=== PATIENT | female | born 2000 | race African-American/Black ===

== ENCOUNTER 2021-02-01 01:14 | Emergency (ER) | payer OTHER, SELFPAY ==
--- NOTE | ~2021-02-01 | XR_ITS ---
EXAMINATION: LEFT HAND AND WRIST CLINICAL INFORMATION: Pain. COMPARISON: None TECHNIQUE: 3 views FINDINGS: There is no fracture. No dislocation. Joint spaces are normal. No soft tissue abnormality. XR/XR hand wrist LT IMPRESSION: Hand and wrist
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
[2021-02-01 01:20] VITALS: BP 118/73; PULSE 80; RESP 16; TEMP 36.8; O2SAT 98; BMI 25.4
--- NOTE | 2021-02-01 04:29 | PC.NURSE ---
PT WALKED OUT OF ROOM, REPORTS THAT SHE NEEDED TO LEAVE. PT WALKED THROUGH TRIAGE AND OUT TO PARKING LOT. FRIEND WAITING FOR HER.
== END 2021-02-01 04:57 | disposition left against medical advice (07) ==
PROVIDERS: Emergency Provider Emergency Medicine
DX: S50.12XA Contusion of left forearm, initial encounter (principal); S60.212A Contusion of left wrist, initial encounter; S40.012A Contusion of left shoulder, initial encounter; W07.XXXA Fall from chair, initial encounter; Y93.89 Activity, other specified; Y92.252 Music hall as the place of occurrence of the external cause; Y99.8 Other external cause status
CPT/HCPCS: 73070; 73110; 73130; 99283; 99284

== ENCOUNTER 2021-02-01 09:31 | Emergency (ER) | payer OTHER, SELFPAY ==
[2021-02-01 09:36] VITALS: BP 128/83; PULSE 107; RESP 16; TEMP 36.8; O2SAT 98; BMI 25.4
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
[2021-02-01] MEDS: oxyCODONE HCl Immed Release 5 MG TABLET PO (10:42)
[2021-02-01] MEDS: Ibuprofen 800 MG TABLET PO (10:43)
== END 2021-02-01 11:01 | disposition home or self-care (01) ==
PROVIDERS: Emergency Provider Student in an Organized Health Care Education/Training Program
DX: S63.92XA Sprain of unspecified part of left wrist and hand, initial encounter (principal); S63.502A Unspecified sprain of left wrist, initial encounter; S53.402A Unspecified sprain of left elbow, initial encounter; W07.XXXA Fall from chair, initial encounter; Y93.89 Activity, other specified; Y92.252 Music hall as the place of occurrence of the external cause; Y99.9 Unspecified external cause status
CPT/HCPCS: 99284

== ENCOUNTER → 2021-02-14 14:21 | Outpatient (BNVA) | payer OTHER, SELFPAY | PROVIDERS: Visit Provider Physician Assistant | DX: S63.502A Unspecified sprain of left wrist, initial encounter (principal) | CPT/HCPCS: 99202 ==

== ENCOUNTER 2021-06-12 19:52 | Emergency (ER) | payer OTHER, SELFPAY ==
[2021-06-12 20:45] VITALS: BP 116/50; PULSE 85; RESP 20; TEMP 36.9; O2SAT 99; BMI 26.4
== END 2021-06-12 22:49 | disposition left against medical advice (07) ==
PROVIDERS: Emergency Provider Emergency Medicine
DX: R05.9 Cough, unspecified (principal)
CPT/HCPCS: 99281; 99282

== ENCOUNTER 2021-06-13 10:26 | Outpatient (REF) | payer OTHER, SELFPAY ==
--- NOTE | ~2021-06-13 | XR_ITS ---
EXAMINATION: XR CHEST CLINICAL INFORMATION: Chronic cough COMPARISON: None TECHNIQUE: 2 views of the chest were obtained. FINDINGS: No significant abnormality is noted involving the heart, lungs, mediastinum, bony thorax or soft tissues. XR/XR chest 2V IMPRESSION: Unremarkable examination.
== END 2021-06-13 10:27 | disposition home or self-care (01) ==
LOC: HO.HMGCX 10:26
PROVIDERS: Visit Provider Nurse Practitioner Family
DX: R05.3 Chronic cough (principal)
CPT/HCPCS: 71046

== ENCOUNTER 2021-12-02 16:11 | Emergency (ER) | payer OTHER, SELFPAY ==
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
[2021-12-02 18:26] VITALS: BP 133/84; PULSE 90; RESP 16; TEMP 37.4; O2SAT 100; BMI 24.5
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
[2021-12-02] MEDS: Amoxicillin/Potassium Clav 875 MG TABLET PO (19:24)
== END 2021-12-02 22:34 | disposition home or self-care (01) ==
PROVIDERS: Emergency Provider Emergency Medicine
DX: S61.411A Laceration without foreign body of right hand, initial encounter (principal); M79.642 Pain in left hand; M79.641 Pain in right hand; Y28.0XXA Contact with sharp glass, undetermined intent, initial encounter; Y93.9 Activity, unspecified; Y92.9 Unspecified place or not applicable; Y99.9 Unspecified external cause status; Z79.899 Other long term (current) drug therapy
CPT/HCPCS: 73110; 73120; 73130; 99282; 99283

== ENCOUNTER 2022-07-26 20:40 | Emergency (ER) | payer OTHER, SELFPAY ==
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
[2022-07-26 20:42] VITALS: BP 142/85; PULSE 104; RESP 16; TEMP 36.3; O2SAT 100; BMI 27.3
--- NOTE | 2022-07-26 21:06 | MHC.EDTECH ---
pt lab drawn ,covid and flu swab collected ,urine sample all sent to lab .
[2022-07-26 21:16] LABS: MANUAL DIFF FLAG NO
[2022-07-26 21:17] LABS: Basophils Percent Auto 0.2 % (0-2); Eosinophils Absolute Auto 0.1 X10*3/uL (0.0-0.4); Eosinophils Percent Auto 0.8 % (0-4); Hematocrit 36.3 % (37.0-47.0); Hemoglobin 12.3 g/dl (12.0-16.0); Imm Gran Abs Auto 0.04 X10*3/uL (0.00-0.03); Imm Gran Pct Auto 0.3 % (0.0-0.4); Lymphocytes Absolute Auto 1.5 X10*3/uL (1.2-4.9); Lymphocytes Percent Auto 11.9 % (20-40); Mean Corpuscular HGB Conc 33.9 g/dl (31.0-35.0); Mean Corpuscular Hemoglobin 29.1 pg (27.0-33.0); Mean Platelet Volume 9.1 fL (9.4-12.3); Monocytes Absolute Auto 0.9 X10*3/uL (0.1-1.2); Monocytes Percent Auto 6.9 % (2-11); Neutrophils Absolute Auto 9.9 x10*3/uL (2.0-8.3); Neutrophils Percent Auto 79.9 % (45-73); Platelet Count 426 X10*3/uL (160-400); Red Blood Count 4.22 X10*6/uL (4.20-5.50); Red Cell Distribution Width 12.8 % (11.0-16.0); White Blood Count 12.4 X10*3/uL (4.8-10.8)
[2022-07-26 21:19] LABS: Appearance Urine Cloudy; Color Urine Yellow; Glucose Urine UA Negative (Negative); Leukocyte Esterase Urine Small (1+) (Negative); Nitrite Urine Negative (Negative); Specific Gravity - Urine >= 1.030 (1.005-1.025); UMIC TRIGGER UACC YES; Urine Blood Small (1+) (Negative); Urine Ketones 15 mg/dL (Negative); Urine Protein Trace mg/dL (Neg-Trace)
[2022-07-26 21:23] LABS: UPreg QC Valid YES; Urine Pregnancy NEGATIVE (NEGATIVE)
[2022-07-26 21:32] LABS: Bacteria Urine 2+ (None Seen); Hyaline Casts Urine 0-2 /LPF (0-2); UACC Culture Trigger YES; WBC Urine 21-50 /HPF (0-5)
[2022-07-26 21:39] LABS: COVID-19 Test Negative (Negative); IDNOW Serial# 16C4AD1C; IDNOW Serial# BCCEAD1C; Influenza A Negative (Negative); Influenza B2 Negative (Negative)
[2022-07-26 21:47] LABS: Alanine Aminotransferase 14 U/L (0-31); Albumin Level 3.9 g/dL (3.5-5.0); Alkaline Phosphatase 89 U/L (39-117); Anion Gap 16 (12-20); Aspartate Amino Transferase 18 U/L (5-31); Bilirubin Direct < 0.2 mg/dL (0.0-0.5); Bilirubin Total 0.4 mg/dL (0.0-1.0); Blood Urea Nitrogen 13 mg/dL (9-16); Calcium 9.1 mg/dL (8.4-10.2); Carbon Dioxide 19 mmol/L (22-29); Chloride 104 mmol/L (96-108); Estimated Glomerular Filt Rate > 60; Glucose Random 84 mg/dL (60-115); Lipase 12 U/L (8-78); Potassium 4.1 mmol/L (3.3-5.1); Sodium 135 mmol/L (135-145); Total Protein 7.7 g/dL (6.5-8.0)
[2022-07-26 23:07] VITALS: BP 106/70; PULSE 87; RESP 18; O2SAT 100
[2022-07-27] MEDS: Ketorolac Tromethamine 15 MG/ML VIAL IM (00:12)
[2022-07-27] MEDS: Acetaminophen 325 MG TABLET 975 MG PO (00:13)
[2022-07-27 00:52] VITALS: BP 125/74; PULSE 86; RESP 18; TEMP 37.2; O2SAT 99
--- NOTE | 2022-07-27 01:06 | ED.ABDPAIN ---
HPI - Abdominal Pain General Chief Complaint: Abdominal Pain Stated Complaint: Lower R abdominal pain Time Seen by Provider: 07/26/22 22:17 Source: patient Mode of arrival: ambulatory History of Present Illness HPI narrative: 22-year-old female without significant past medical history reports that she has had right lower quadrant pain with diarrhea for the past 1 week and states that the pain comes on very transiently, sharp in nature, nonradiating denies any associated fever, chills but has had some nausea but is not experiencing any urinary pain/burning/frequency and denies any vaginal discharge. Related Data Home Medications Medication Instructions Recorded Confirmed dextroamphetamine-amphetamine ER 1 cap PO QAM 06/13/21 15 mg 24hr capsule,extend release (Adderall XR) lorazepam 0.5 mg tablet 0.5 mg PO DAILY PRN 06/13/21 Previous Rx's Medication Instructions Recorded azithromycin 250 mg tablet See Rx Instructions PO .COMPLEX #6 06/13/21 tabs benzonatate 100 mg capsule 100 mg PO BID PRN cough 10 days 06/13/21 #20 caps amoxicillin 875 mg-potassium 1 tab PO BID 7 days #14 tabs 12/02/21 clavulanate 125 mg tablet bacitracin 500 unit/gram topical 1 appl topical BID #30 grams 12/02/21 ointment cefdinir 300 mg capsule 300 mg PO BID 7 days #14 caps 07/27/22 Allergies Allergy/AdvReac Type Severity Reaction Status Date / Time No Known Allergies Allergy Verified 06/13/21 09:54 Review of Systems Review of Systems Pertinent positives and negatives as stated in HPI PMFSH Past Medical History Source: nursing notes reviewed Medical History No known health problems Social History Social History Alcohol intake: unknown Patient Tobacco Use Status: Tobacco use Unknown Smoked in Last 30 Days: No Use of substances other than those prescribed or required for medical reasons: No Advance Directives: No Advance Directives Information Provided: No Current occupational status: employed Current occupation: [employer]/rt hand Physical Exam ED Vital Signs: Vital Signs - 24 hr 07/26/22 20:42 07/26/22 23:07 07/27/22 00:52 Temperature 97.3 F 99.0 F Pulse Rate 104 H 87 86 Respiratory Rate 16 18 18 Blood Pressure 142/85 H 106/70 125/74 Pulse Oximetry 100 100 99 Oxygen Delivery Method Room Air Room Air Room Air BMI result Body Mass Index 27.3 VITAL SIGNS: Reviewed. GENERAL: Well developed, well nourished, in no acute distress. HEAD: Normocephalic/atraumatic EYES: PERRLA, EOMI LUNGS: Normal breath sounds. No adventitious sounds or accessory muscle use. SpO2<100> CARDIOVASCULAR: Regular rate and rhythm without noted murmurs ABDOMEN: Soft, non-tender, non-distended with bowel sounds. MUSCULOSKELETAL: No tenderness, deformities, or effusions noted on gross inspection. EXTREMITIES: No cyanosis, clubbing or edema. SKIN: Inspection of the skin reveals no rashes NEUROLOGIC: Alert and oriented x 4. Strength and sensation to light touch were grossly intact x 4. Medical Decision Making Medical Decision Making [facility] Narrative: 22-year-old female with history and clinical presentation after review of all investigations mildly suggestive possible renal colic, cystitis, pyelonephritis and less likely felt to be ectopic/appendicitis. I have reviewed all investigations my interpretation is as patient has a mild pyelonephritis with leukocytosis, positive urine results and on re-evaluation ports significant improvement in her pain after receiving combination analgesics. Patient will receive initial antibiotics and bees discharged on remaining course. Differential Diagnosis Differential Diagnoses: The differential diagnosis associated with the presentation includes Please see the discussion above Lab Data [facility] Lab Attestation statement: I reviewed the patient's lab results. Please see the discussion above 07/26/22 21:04 07/26/22 21:04 Labs: Lab Results 07/26/22 07/26/22 07/26/22 Range/Units 21:04 21:04 21:04 WBC 12.4 H (4.8-10.8) X10*3/uL RBC 4.22 (4.20-5.50) X10*6/uL Hgb 12.3 (12.0-16.0) g/dl Hct 36.3 L (37.0-47.0) % MCV 86.0 (80.0-98.0) fL MCH 29.1 (27.0-33.0) pg MCHC 33.9 (31.0-35.0) g/dl RDW 12.8 (11.0-16.0) % Plt Count 426 H (160-400) X10*3/uL MPV 9.1 L (9.4-12.3) fL Immature Gran % (Auto) 0.3 (0.0-0.4) % Neut % (Auto) 79.9 H (45-73) % Lymph % (Auto) 11.9 L (20-40) % [place] % (Auto) 6.9 (2-11) % Eos % (Auto) 0.8 (0-4) % Baso % (Auto) 0.2 (0-2) % Lymph # (Auto) 1.5 (1.2-4.9) X10*3/uL [place] # (Auto) 0.9 (0.1-1.2) X10*3/uL Eos # (Auto) 0.1 (0.0-0.4) X10*3/uL Baso # (Auto) 0.0 (0.0-0.2) X10*3/uL Abs Immat Gran (auto) 0.04 H (0.00-0.03) X10*3/uL Absolute Neuts (auto) 9.9 H (2.0-8.3) x10*3/uL Absolute Nucleated RBC 0.000 (0.0-0.012) X10*3/uL Nucleated RBC % (auto) 0.0 (0.0-0.2) /100WBC Sodium 135 (135-145) mmol/L Potassium 4.1 (3.3-5.1) mmol/L Chloride 104 (96-108) mmol/L Carbon Dioxide 19 L (22-29) mmol/L Anion Gap 16 (12-20) BUN 13 (9-16) mg/dL Creatinine 0.66 (0.5-1.4) mg/dL Estim Creat Clear Calc 116.0 Estimated GFR > 60 Random Glucose 84 (60-115) mg/dL Calcium 9.1 (8.4-10.2) mg/dL Total Bilirubin 0.4 (0.0-1.0) mg/dL Direct Bilirubin < 0.2 (0.0-0.5) mg/dL AST 18 (5-31) U/L ALT 14 (0-31) U/L Alkaline Phosphatase 89 (39-117) U/L Total Protein 7.7 (6.5-8.0) g/dL Albumin 3.9 (3.5-5.0) g/dL Lipase 12 (8-78) U/L Urine Color Urine Appearance Urine pH (5.0-9.0) Ur Specific [place] (1.005-1.025) Urine Protein (Neg-Trace) mg/dL Urine Glucose (UA) (Negative) mg/dL Urine Ketones (Negative) mg/dL Urine Blood (Negative) Urine Nitrite (Negative) Ur Leukocyte Esterase (Negative) Urine RBC (0-2) /HPF Urine WBC (0-5) /HPF Ur Squamous Epith Cells (0-2) /HPF Urine Bacteria (None Seen) Hyaline Casts (0-2) /LPF Urine Test (NEGATIVE) COVID-19 (DEACON) (Negative) COVID-19 Clin Com Influenza Type A (STEVE) Negative (Negative) Influenza Type B (STEVE) Negative (Negative) Influenza A & B Note See Note 07/26/22 07/26/22 07/26/22 Range/Units 21:04 21:04 21:04 WBC (4.8-10.8) X10*3/uL RBC (4.20-5.50) X10*6/uL Hgb (12.0-16.0) g/dl Hct (37.0-47.0) % MCV (80.0-98.0) fL MCH (27.0-33.0) pg MCHC (31.0-35.0) g/dl RDW (11.0-16.0) % Plt Count (160-400) X10*3/uL MPV (9.4-12.3) fL Immature Gran % (Auto) (0.0-0.4) % Neut % (Auto) (45-73) % Lymph % (Auto) (20-40) % [place] % (Auto) (2-11) % Eos % (Auto) (0-4) % Baso % (Auto) (0-2) % Lymph # (Auto) (1.2-4.9) X10*3/uL [place] # (Auto) (0.1-1.2) X10*3/uL Eos # (Auto) (0.0-0.4) X10*3/uL Baso # (Auto) (0.0-0.2) X10*3/uL Abs Immat Gran (auto) (0.00-0.03) X10*3/uL Absolute Neuts (auto) (2.0-8.3) x10*3/uL Absolute Nucleated RBC (0.0-0.012) X10*3/uL Nucleated RBC % (auto) (0.0-0.2) /100WBC Sodium (135-145) mmol/L Potassium (3.3-5.1) mmol/L Chloride (96-108) mmol/L Carbon Dioxide (22-29) mmol/L Anion Gap (12-20) BUN (9-16) mg/dL Creatinine (0.5-1.4) mg/dL Estim Creat Clear Calc Estimated GFR Random Glucose (60-115) mg/dL Calcium (8.4-10.2) mg/dL Total Bilirubin (0.0-1.0) mg/dL Direct Bilirubin (0.0-0.5) mg/dL AST (5-31) U/L ALT (0-31) U/L Alkaline Phosphatase (39-117) U/L Total Protein (6.5-8.0) g/dL Albumin (3.5-5.0) g/dL Lipase (8-78) U/L Urine Color Yellow Urine Appearance Cloudy Urine pH 6.0 (5.0-9.0) Ur Specific [place] >= 1.030 H (1.005-1.025) Urine Protein Trace (Neg-Trace) mg/dL Urine Glucose (UA) Negative (Negative) mg/dL Urine Ketones 15 (Negative) mg/dL Urine Blood Small (1+) H (Negative) Urine Nitrite Negative (Negative) Ur Leukocyte Esterase Small (1+) H (Negative) Urine RBC 3-5 H (0-2) /HPF Urine WBC 21-50 H (0-5) /HPF Ur Squamous Epith Cells 11-20 (0-2) /HPF Urine Bacteria 2+ (None Seen) Hyaline Casts 0-2 (0-2) /LPF Urine Test NEGATIVE (NEGATIVE) COVID-19 (DEACON) Negative (Negative) COVID-19 Clin Com See Note Influenza Type A (STEVE) (Negative) Influenza Type B (STEVE) (Negative) Influenza A & B Note Radiology Impression Radiologist Impression: My interpretation is in agreement with radiology's impression of the imaging study Medications Administered Discontinued Medications Generic Name Dose Route Start Last Admin Trade Name Tata PRN Reason Stop Dose Admin Acetaminophen 975 mg 07/26/22 23:37 07/27/22 00:13 Acetaminophen 325 Mg Tablet PO 07/26/22 23:38 975 mg ONCE ONE Administration Ketorolac Tromethamine 15 mg 07/26/22 23:37 07/27/22 00:12 Ketorolac Tromethamine 15 Mg/Ml Vial IM 07/26/22 23:38 15 mg ONCE ONE Administration Discharge Plan Discharge Clinical Impression: Pyelonephritis Patient Disposition: Home, Self-Care Instructions: Kidney Infection (ED) Additional Instructions: 1. Complete the entire course of antibiotics as ordered. Recommend [id number] Tylenol/ibuprofen as needed for pain control. 2. Follow-up with primary care provider next 1-2 days. Return to the ER for any worsening symptoms. Prescriptions: New cefdinir 300 mg capsule 300 mg PO BID 7 Days Qty: 14 0RF No Action amoxicillin-pot clavulanate 875-125 mg tablet 1 tab PO BID 7 Days Qty: 14 0RF bacitracin 500 unit/gram ointment 1 appl topical BID Qty: 30 0RF dextroamphetamine-amphetamine [Adderall XR] 15 mg capsule,extended release 24hr 1 cap PO QAM lorazepam 0.5 mg tablet 0.5 mg PO DAILY PRN benzonatate 100 mg capsule 100 mg PO BID PRN (Reason: cough) 10 Days Qty: 20 0RF azithromycin 250 mg tablet See Rx Instructions PO .COMPLEX Qty: 6 0RF Rx Instructions: For 250 mg dose pack: take 500 mg today (day 1), then 250 mg for 4 days (days 2-5) PO
[2022-07-27] MEDS: Amoxicillin/Potassium Clav 875 MG TABLET PO (01:21)
== END 2022-07-27 01:25 | disposition home or self-care (01) ==
PROVIDERS: Emergency Provider Student in an Organized Health Care Education/Training Program
DX: N12 Tubulo-interstitial nephritis, not specified as acute or chronic (principal); R10.31 Right lower quadrant pain; Z20.822 Contact with and (suspected) exposure to COVID-19; Z20.828 Contact with and (suspected) exposure to other viral communicable diseases; Z79.899 Other long term (current) drug therapy
CPT/HCPCS: 36415; 74176; 80048; 80076; 81001; 81025; 83690; 85025; 87086; 87502; 87635; 96372; 99284; J1885

== ENCOUNTER 2024-10-27 20:55 | Emergency (ER) | payer MEDICAID, SELFPAY ==
[2024-10-27 20:56] VITALS: BP 136/76; PULSE 102; RESP 20; TEMP 36.7; O2SAT 100; BMI 28.0
--- NOTE | 2024-10-27 21:00 | ED_ITS ---
[facility] - General Adult General Chief complaint: Allergic Reaction Stated complaint: allergic reaction to medication Time Seen by Provider: 10/27/24 21:44 Source: patient Mode of arrival: ambulatory Limitations: no limitations History of Present Illness ED Provider: HPI narrative: 24-year-old woman, no drug or alcohol misuse, bipolar, just started treatment with long-acting risperidone injections, just had a 2nd shot presented with significant spasm of her neck and back, by the time of my evaluation she already received 1 mg of intramuscular injection of benztropine with significant improvement in her symptoms. She was still having some residual torticollis but it is much more improved on prior. She has never been on this medication in the past, she will be able to speak to a psychiatrist on Wednesday. Related Data Home Medications ?Medication ?Instructions ?Recorded ?Confirmed dextroamphetamine-amphetamine ER 1 cap PO QAM 06/13/21 15 mg 24hr capsule,extend release (Adderall XR) lorazepam 0.5 mg tablet 0.5 mg PO DAILY PRN 06/13/21 Previous Rx's ?Medication ?Instructions ?Recorded azithromycin 250 mg tablet See Rx Instructions PO .COMPLEX #6 06/13/21 tabs benzonatate 100 mg capsule 100 mg PO BID PRN cough 10 days 06/13/21 #20 caps amoxicillin 875 mg-potassium 1 tab PO BID 7 days #14 tabs 12/02/21 clavulanate 125 mg tablet bacitracin 500 unit/gram topical 1 appl topical BID #30 grams 12/02/21 ointment cefdinir 300 mg capsule 300 mg PO BID 7 days #14 caps 07/27/22 lorazepam 0.5 mg tablet (Ativan) 0.5 mg PO TID spasm 3 days #9 tabs 10/27/24 Allergies Allergy/AdvReac Type Severity Reaction Status Date / Time No Known Allergies Allergy Verified 10/27/24 20:59 Review of Systems Constitutional: Constitutional: Reports as per [facility] Past Medical History Medical History No known health problems Social History Social History Alcohol intake: unknown Patient Tobacco Use Status: Tobacco use Unknown Smoked in Last 30 Days: No Use of substances other than those prescribed or required for medical reasons: No Advance Directives: No Advance Directives Information Provided: No Do you have a plan to hurt others: No Plan Patient : No Current occupational status: employed Current occupation: [employer]/rt hand Physical Exam ED Vital Signs: Vital Signs - 24 hr 10/27/24 20:56 10/27/24 21:32 Temperature 98.1 F Pulse Rate 102 H 101 H Respiratory Rate 20 20 Blood Pressure 136/76 125/67 Pulse Oximetry 100 98 Oxygen Delivery Method Room Air Room Air BMI result Body Mass Index 28.0 Const Other: ? Gen: Overall well-appearing patient ? HEENT: PERRLA, ? Neck: no neck stiffness at this time ? CV: RRR, no obvious murmurs appreciated ? Resp: No wheezing rales rhonchi no stridor moving air well ? MSK: FROM, strength 5/5 all extremities, active and passive range of motion bilateral upper and lower extremities unremarkable ? Skin: Warm, dry, intact, ? Neuro: Alert and oriented x3, moving upper and lower extremities symmetrically, no obvious facial asymmetry noted Course Course Course Narrative: RME; 24-year-old female presents to ED for tolerated this nausea reaction from risperidone injection. He will be brought back to the ED for cognetin and benadryl Medications Administered Discontinued Medications Generic Name Dose Route Start Last Admin Trade Name Freq PRN Reason Stop Dose Admin Benztropine Mesylate 1 mg 10/27/24 20:59 10/27/24 21:37 Benztropine Mesylate 2 Mg/2 Ml Vial IM 10/27/24 21:00 1 mg ONCE ONE Administration Diazepam 4 mg 10/27/24 22:02 10/27/24 22:37 Diazepam 2 Mg Tablet PO 10/27/24 22:03 4 mg ONCE ONE Administration Medical Decision Making Medical Decision Making [facility] Narrative: patient evaluated with acute dystonic reaction due to antipsychotic, this is a long-acting antipsychotic, she did respond to Cogentin, I am going to load her with Valium long-acting medication which will help her for the rest of the day and hopefully the night, tomorrow she can warp picker additional benzos, I prefer these 2 Cogentin in dystonic reactions as benzodiazepines have for anticholinergic side effects and on Wednesday she will contact the psychiatrist. There is no ongoing drug use or prior medication misuse reported for me to be concerned for misuse of this medication. Differential Diagnosis Differential Diagnoses: The differential diagnosis associated with the presentation includes acute dystonia, tardive dyskinesia, neuroleptic malignant syndrome, electrolyte derangements Discharge Plan Discharge Clinical Impression: Drug induced acute dystonia Patient Disposition: Home, Self-Care Additional Instructions: Evaluated with a dystonic reaction to antipsychotic medication, this is not an allergy but a side effect, please discuss this with your psychiatrist and see whether staying on the risperidone injection is a good option for you, and the meantime treatment is with lorazepam which is benzodiazepine you can take 0.5 mg every 6-8 hours if you have spasms, if 0.5 mg not helping he can also supplement with 25-50 mg of Benadryl, difficulty breathing, difficulty swallowing liquids, any other concerns come back to the ER. Benzodiazepines, Benadryl we will make you drowsy do not mix with marijuana, alcohol, do not drive while taking these medications. Prescriptions: New lorazepam [Ativan] 0.5 mg tablet 0.5 mg PO TID 3 Days Qty: 9 0RF No Action amoxicillin-pot clavulanate 875-125 mg tablet 1 tab PO BID 7 Days Qty: 14 0RF bacitracin 500 unit/gram ointment 1 appl topical BID Qty: 30 0RF cefdinir 300 mg capsule 300 mg PO BID 7 Days Qty: 14 0RF dextroamphetamine-amphetamine [Adderall XR] 15 mg capsule,extended release 24hr 1 cap PO QAM lorazepam 0.5 mg tablet 0.5 mg PO DAILY PRN benzonatate 100 mg capsule 100 mg PO BID PRN (Reason: cough) 10 Days Qty: 20 0RF azithromycin 250 mg tablet See Rx Instructions PO .COMPLEX Qty: 6 0RF Rx Instructions: For 250 mg dose pack: take 500 mg today (day 1), then 250 mg for 4 days (days 2-5) PO Interventions: ED Discharge Assessment Last Done: 10/27/24 22:39 Discharge Date/Time: 10/27/24 22:39 Print Language: Romanian
--- OUTSIDE RECORDS SUMMARY | 2024-10-27 21:17 | XMS_ITS | Encounter Summary ---
Author Organization [facility] Address [address] [place] [address] Phone Care Team Providers Care Engineering Laboratory Technician Name Role Phone Provider, Donaldo DODGE Primary Care Provider [phone] Encounter Details Date Type Department Care Team (Late st Contact Info) Description 01/14/2017 Conversion Encounter [facility] [place] [address], [place] [id number] Social History Tobacco Use Types Packs/Day Years Used Date Smoking Tobacco: Never Comments:Never smoker Comments Unknown Sex and Gender Information Value Date Recorded Sex Assigned at Not on file Legal Sex Female 5:17 PM EDT Gender Identity Not on file Sexual Orientation Not on file documented as of this encounter Plan of Treatment Not on file documented as of this encounter Visit Diagnoses Not on filedocumented in this encounter Care Teams Engineering Laboratory Technician Relationship Specialty Start Date End Date Provider, MD Donaldo [address] [place] [address] PCP - General Pediatrics 02/26/21 09/10/22 documented as of this encounter
[2024-10-27 21:32] VITALS: BP 125/67; PULSE 101; RESP 20; O2SAT 98
[2024-10-27] MEDS: Benztropine Mesylate 2 MG/2 ML VIAL 1 MG IM (21:37)
[2024-10-27] MEDS: diazePAM 2 MG TABLET 4 MG PO (22:37)
[2024-10-27 22:39] VITALS: BP 125/67; PULSE 101; RESP 20; TEMP 37.2; O2SAT 98
== END 2024-10-27 22:39 | disposition home or self-care (01) ==
PROVIDERS: Emergency Provider Emergency Medicine
DX: G24.09 Other drug induced dystonia (principal); M62.838 Other muscle spasm; F31.9 Bipolar disorder, unspecified
CPT/HCPCS: 96372; 99284; J0515